=== PATIENT | female | born 1940 | race Hispanic/Latino ===

== ENCOUNTER → 2017-07-30 | Outpatient (CLI) | payer OTHER | END | disposition home or self-care (01) | LOC: RAH 09:22 | PROVIDERS: ATTEND Internal Medicine | DX: Z12.31 Encounter for screening mammogram for malignant neoplasm of breast (principal); N63.10 Unspecified lump in the right breast, unspecified quadrant | CPT/HCPCS: 77067 ==

== ENCOUNTER → 2017-08-17 | Outpatient (CLI) | payer OTHER | END | disposition home or self-care (01) | LOC: RAH 08:10 | PROVIDERS: ATTEND Internal Medicine | DX: N60.12 Diffuse cystic mastopathy of left breast (principal); R92.8 Other abnormal and inconclusive findings on diagnostic imaging of breast | CPT/HCPCS: 76641 ==

== ENCOUNTER 2018-01-23 09:31 | Emergency (ER) | payer OTHER ==
[2018-01-23 09:57] LABS: APPEARANCE,URINE Cloudy (CLEAR); BILIRUBIN,URINE Negative (NEGATIVE); COLOR,URINE Yellow (YELLOW); GLUCOSE, URINE (UA) Negative (NEGATIVE); KETONES,URINE Negative (NEGATIVE); LEUKOCYTE ESTERASE ,URINE Small (NEGATIVE); NITRATE,URINE Negative (NEGATIVE); OCCULT BLOOD,URINE Negative (NEGATIVE); PROTEIN,URINE Trace (NEGATIVE)
[2018-01-23 10:05] LABS: BACTERIA,URINE Few /HPF (None Seen); RBC,URINE 0-1 /HPF (0-1); SQUAMOUS EPITHELIAL CELL,UR Few /HPF (0-2)
[2018-01-23] MEDS ORDERED: ALBUTEROL SULFATE 0.083% 2.5 MG/3 ML INH IH ONE (10:16)
[2018-01-23 10:21] LABS: BASOPHILS % (AUTO) 0.6 % (0.0-5.0); EOSINOPHILS % (AUTO) 1.6 % (0.0-8.0); HEMATOCRIT 41.5 % (36-48); MEAN CORPUSCULAR HGB CONC 34.6 g/dL (32.0-36.0); MEAN CORPUSCULAR VOLUME 86.7 fL (79-99); MONOCYTES % (AUTO) 7.9 % (3.0-13.0); NEUTROPHILS % (AUTO) 65.9 % (40.0-77.0); PLATELET COUNT (AUTO) 434 K/uL (130-400); RED BLOOD CELL COUNT(AUTO) 4.79 MIL/uL (4.00-5.50); RED CELL DISTRIBUTION WIDTH 13.9 % (11.0-15.5); WHITE BLOOD COUNT (AUTO) 14.4 K/uL (4.8-10.8)
[2018-01-23 11:44] LABS: CREATININE 0.5 mg/dL (0.5-1.5); POTASSIUM 3.4 mmol/L (3.5-5.1)
== END 2018-01-23 11:44 | disposition home or self-care (01) ==
LOC: EDH 09:31
DX: J20.9 Acute bronchitis, unspecified (principal); E78.5 Hyperlipidemia, unspecified; I10 Essential (primary) hypertension; Z90.49 Acquired absence of other specified parts of digestive tract; Z72.0 Tobacco use
CPT/HCPCS: 36415; 71046; 80048; 81001; 85025; 87804; 94640

== ENCOUNTER → 2018-05-10 | Outpatient (CLI) | payer OTHER ==
[2018-05-10 09:24] LABS: ALBUMIN 3.6 g/dL (3.5-5.0); BILIRUBIN,DIRECT 0.1 mg/dL (0.0-0.3); BILIRUBIN,TOTAL 0.2 mg/dL (0.2-1.0); TOTAL PROTEIN, SERUM 6.9 g/dL (6.0-8.3)
== END | disposition home or self-care (01) ==
LOC: RAH 08:25
PROVIDERS: ATTEND Internal Medicine
DX: K76.0 Fatty (change of) liver, not elsewhere classified (principal); K86.2 Cyst of pancreas; I70.0 Atherosclerosis of aorta
CPT/HCPCS: 36415; 76700; 80076

== ENCOUNTER 2018-08-27 18:16 | Observation (INO) | payer OTHER ==
[2018-08-27 19:13] LABS: BASOPHILS % (AUTO) 0.1 % (0.0-5.0); EOSINOPHILS % (AUTO) 0.1 % (0.0-8.0); HEMATOCRIT 39.6 % (36-48); LYMPHOCYTES % (AUTO) 11.1 % (21.0-51.0); MEAN CORPUSCULAR HEMOGLOBIN 29.8 pg (27.0-33.0); MEAN CORPUSCULAR HGB CONC 33.9 g/dL (32.0-36.0); MONOCYTES % (AUTO) 5.3 % (3.0-13.0); NEUTROPHILS % (AUTO) 83.4 % (40.0-77.0); NUCLEATED RED BLOOD CELLS 0.1 % (0.0-0.19); PLATELET COUNT (AUTO) 359 K/uL (130-400); RED BLOOD CELL COUNT(AUTO) 4.49 MIL/uL (4.00-5.50); WHITE BLOOD COUNT (AUTO) 12.4 K/uL (4.8-10.8)
[2018-08-27 19:23] LABS: CREATININE 0.6 mg/dL (0.5-1.5); POTASSIUM 3.5 mmol/L (3.5-5.1)
[2018-08-27 19:34] LABS: BILIRUBIN,TOTAL 0.2 mg/dL (0.2-1.0); INR 0.93 (0.85-1.15); PROTHROMBIN TIME 9.8 SEC (9.6-11.6); TOTAL PROTEIN, SERUM 7.4 g/dL (6.0-8.3)
[2018-08-27 19:57] LABS: APPEARANCE,URINE Clear (CLEAR); BILIRUBIN,URINE Negative (NEGATIVE); COLOR,URINE Yellow (YELLOW); GLUCOSE, URINE (UA) Negative (NEGATIVE); KETONES,URINE Negative (NEGATIVE); LEUKOCYTE ESTERASE ,URINE Trace (NEGATIVE); NITRATE,URINE Negative (NEGATIVE); OCCULT BLOOD,URINE Negative (NEGATIVE); PROTEIN,URINE Negative (NEGATIVE); UROBILINOGEN,URINE 0.2 mg/dL (0.2-1.0)
[2018-08-27] MEDS ORDERED: ASPIRIN 325 MG TABLET ONE (20:02)
[2018-08-27 20:22] LABS: BACTERIA,URINE Rare /HPF (None Seen); RBC,URINE None Seen /HPF (0-1); WBC,URINE 0-1 /HPF (0-1)
[2018-08-27] MEDS ORDERED: SODIUM CHLORIDE 0.9% 10 ML VIAL IVP PRN (21:00)
[2018-08-27] MEDS: NITROGLYCERIN 1GM/1 INCH PACKET TD SCH (21:00)
[2018-08-27] MEDS ORDERED: NITROGLYCERIN 1GM/1 INCH PACKET TD ONE (21:14)
[2018-08-27] MEDS ORDERED: POTASSIUM CHLORIDE 10% ELIXIR 20 MEQ/15 ML UDCUP PO PRN (21:30)
[2018-08-27] MEDS ORDERED: GLUCAGON 1MG KIT 1 MG ML IM PRN (21:30)
[2018-08-27] MEDS ORDERED: DIPHENHYDRAMINE HCL 25 MG CAPSULE PO PRN (21:30)
[2018-08-27] MEDS ORDERED: LACTULOSE 20 GM/30 ML UDCUP PO PRN (21:30)
[2018-08-27] MEDS ORDERED: MAG HYDROX/AL HYDROX/SIMETH ES 30 ML SUSP UDCUP PO PRN (21:30)
[2018-08-27] MEDS ORDERED: ACETAMINOPHEN 325 MG TAB PO PRN ×2 (21:30)
[2018-08-27] MEDS ORDERED: GUAIFENESIN-DM 200/20 MG 10 ML PO PRN (21:30)
[2018-08-27] MEDS ORDERED: ONDANSETRON HCL 4 MG/2 ML VIAL IV PRN (21:30)
[2018-08-27] MEDS ORDERED: DEXTROSE 50%-WATER 50 ML DISP.SYRIN IV PRN (21:30)
[2018-08-27] MEDS ORDERED: NITROGLYCERIN 0.4 MG SL TAB SL PRN (21:30)
[2018-08-27] MEDS ORDERED: LIDOCAINE HCL 2% VISCOUS 30 ML, MAG HYDROX/AL HYDROX/SIMETH 30 ML, BELLADONNA-PHENOBARB... PO PRN ×3 (21:30)
[2018-08-27] MEDS ORDERED: LIDOCAINE HCL-MPF 1% 2ML VIAL IVP PRN (21:30)
[2018-08-27] MEDS ORDERED: POTASSIUM CHLORIDE 20MEQ/100ML 100 ML IV PRN (21:30)
[2018-08-27] MEDS ORDERED: DiphenhydrAMINE HCL 50 MG/ML VIAL IV PRN (21:30)
[2018-08-27 23:27] LABS: CREATINE KINASE, TOTAL 91 U/L (21-232); MYOGLOBIN 50 ng/mL (10-92); TROPONIN I < 0.04 ng/mL (0.00-0.06)
[2018-08-27 23:40] VITALS: BP 130/51
[2018-08-27] MEDS: SODIUM CHLORIDE 0.9% 1000ML 1,000 ML IV SCH (23:45)
[2018-08-28 03:45] LABS: CREATINE KINASE, TOTAL 100 U/L (21-232); MYOGLOBIN 39 ng/mL (10-92); TROPONIN I < 0.04 ng/mL (0.00-0.06)
[2018-08-28 04:26] VITALS: BP 127/70
[2018-08-28] MEDS: NITROGLYCERIN 1GM/1 INCH PACKET TD SCH ×3 (05:51→15:15)
[2018-08-28] MEDS ORDERED: LIDOCAINE HCL 2% VISCOUS 30 ML, MAG HYDROX/AL HYDROX/SIMETH 30 ML, DICYCLOMINE HCL 20 MG PO PRN ×3 (06:30)
[2018-08-28] MEDS ORDERED: COMPOUND PO MISCELLANEOUS 1 EACH MISC MISC PRN (06:30)
[2018-08-28] MEDS: INSULIN HUMULIN R 100 UNIT/ML 3ML SQ SCH ×3 (06:43→16:30)
[2018-08-28] MEDS ORDERED: REGADENOSON 0.4 MG/5 ML PF SYG IVP SCH (07:15)
[2018-08-28] MEDS: SODIUM CHLORIDE 0.9% 1000ML 1,000 ML IV SCH ×2 (07:17→17:17)
[2018-08-28 07:30] VITALS: BP 142/69
--- NOTE | 2018-08-28 08:45 | NUR ---
PATIENT TRANSFERED DOWNSTAIRS FOR [facility]. AWAKE AND ALERT, VOICES NO CHEST PAIN OR DISCOMFORT
[2018-08-28] MEDS ORDERED: ASPIRIN 325 MG TABLET PO SCH (09:00)
[2018-08-28] MEDS ORDERED: PANTOPRAZOLE SODIUM 40 MG TABLET.DR PO SCH (09:00)
[2018-08-28] MEDS ORDERED: ENOXAPARIN SODIUM 30 MG/0.3 ML SQ SCH (09:00)
[2018-08-28 11:00] VITALS: BP 130/63
[2018-08-28] MEDS: POTASSIUM CHLORIDE 20 MEQ ERTAB PO PRN ×2 (11:03→13:18)
[2018-08-28 16:00] VITALS: BP 148/63
[2018-08-28] MEDS ORDERED: GABA300S PO (17:05)
[2018-08-28] MEDS ORDERED: TYL3 PO (17:05)
[2018-08-28] MEDS ORDERED: ESOM40CA PO (17:05)
[2018-08-28] MEDS ORDERED: AMLO2.5T4 PO (17:05)
[2018-08-28] MEDS ORDERED: LISI1TAB13 PO (17:05)
[2018-08-28] MEDS ORDERED: ROSU20TA23 PO (17:05)
[2018-08-28] MEDS ORDERED: ASPI-1181 PO (17:05)
[2018-08-28] MEDS ORDERED: ALEN70TA10 PO (17:05)
[2018-08-28] MEDS ORDERED: GLIM1TAB2 PO (17:05)
[2018-08-28] MEDS ORDERED: ALBU1.252 IH (17:05)
[2018-08-28] MEDS ORDERED: FLUT1BLS3 IH (17:05)
--- NOTE | 2018-08-28 18:00 | NUR ---
DISCHARGE INSTRUCTIONS GIVEN. PATIENT TO FOLLOW UP WITH DR. MCCRAY TOMORROW FOR FOLLOW UP APPT. ALL QUESTIONS ANSWERED . IV DISCONTINUED WITH INNER CANNULA INTACT.
[2018-08-29] MEDS ORDERED: ATORVASTATIN CALCIUM 40 MG TABLET PO SCH (09:00)
== END 2018-08-28 18:40 | disposition home or self-care (01) ==
LOC: EDH 18:16 → EDHIP 20:00 → 3DH 21:20
PROVIDERS: ADMIT Internal Medicine; ATTEND Internal Medicine
DX: R07.89 Other chest pain (principal); E11.51 Type 2 diabetes mellitus with diabetic peripheral angiopathy without gangrene; E11.36 Type 2 diabetes mellitus with diabetic cataract; E55.9 Vitamin D deficiency, unspecified; E78.2 Mixed hyperlipidemia; I10 Essential (primary) hypertension; I70.212 Atherosclerosis of native arteries of extremities with intermittent claudication, left leg; J44.9 Chronic obstructive pulmonary disease, unspecified; K21.9 Gastro-esophageal reflux disease without esophagitis; M19.90 Unspecified osteoarthritis, unspecified site; M43.16 Spondylolisthesis, lumbar region; M47.816 Spondylosis without myelopathy or radiculopathy, lumbar region; Z82.49 Family history of ischemic heart disease and other diseases of the circulatory system; Z83.3 Family history of diabetes mellitus; Z90.49 Acquired absence of other specified parts of digestive tract; Z90.710 Acquired absence of both cervix and uterus; F17.200 Nicotine dependence, unspecified, uncomplicated
CPT/HCPCS: 36415 ×2; 71045; 78452; 80053; 81001; 82550 ×3; 82948 ×4; 83874 ×3; 84484 ×3; 85025; 85610; 85730; 93005; 96372; 99284; A9500 ×2; G0378 ×23; J1650; J2785; J7030

== ENCOUNTER → 2018-12-13 | Outpatient (CLI) | payer OTHER ==
[~2018-12-13] MED LIST: ALBU1.252 IH; ALEN70TA10 PO; AMLO2.5T4 PO; ASPI-1181 PO; ESOM40CA PO; FLUT1BLS3 IH; GABA300S PO; GLIM1TAB3 PO; LISI1TAB29 PO; ROSU20TA23 PO; TYL3 PO
== END | disposition home or self-care (01) ==
LOC: RAH 07:47
PROVIDERS: ATTEND Internal Medicine
DX: K86.2 Cyst of pancreas (principal); Z90.49 Acquired absence of other specified parts of digestive tract
CPT/HCPCS: 76700

== ENCOUNTER → 2020-10-10 | Outpatient (CLI) | payer OTHER ==
[~2020-10-10] MED LIST changes: -ALEN70TA10 PO; +ALEN70TA80 PO; -ASPI-1181 PO; +ASPI-1443 PO; +GLIM1TAB18 PO; -GLIM1TAB3 PO
== END | disposition home or self-care (01) ==
LOC: OIH 07:37
PROVIDERS: ATTEND Internal Medicine
DX: M25.572 Pain in left ankle and joints of left foot (principal)
CPT/HCPCS: 73610

== ENCOUNTER 2022-07-03 09:31 | Observation (INO) | payer OTHER ==
[~2022-07-03] VITALS: Ht 157.5 cm; Wt 75.3 kg
[~2022-07-03 09:31] MED LIST changes: -GABA300S PO; +GABA300S3 PO; -LISI1TAB29 PO; +LISI1TAB53 PO
[2022-07-03] MEDS ORDERED: ZOSYN 3.375GM +NS 50ML IVPB ONE (10:30)
[2022-07-03 10:55] LABS: ALBUMIN 3.7 g/dL (3.5-5.0); CREATININE 0.5 mg/dL (0.5-1.5); POTASSIUM 3.7 mmol/L (3.5-5.1); TOTAL PROTEIN, SERUM 7.1 g/dL (6.0-8.3)
[2022-07-03] MEDS ORDERED: ONDANSETRON 4MG INJ IVP PRN (11:00)
[2022-07-03] MEDS ORDERED: 0.9%NACL 1000ML 1,000 ML IV SCH (11:00)
[2022-07-03] MEDS ORDERED: ONDANSETRON 4MG INJ IVP ONE (11:00)
[2022-07-03] MEDS ORDERED: MORPHINE 2 MG SYG IVP ONE (11:00)
[2022-07-03] MEDS: ZOSYN 3.375GM +NS 50ML IVPB SCH ×2 (11:00→23:05)
[2022-07-03] MEDS ORDERED: MORPHINE 2 MG SYG IVP PRN (11:00)
[2022-07-03] MEDS ORDERED: ACETAMINOPHEN 325 MG TAB PO PRN (11:00)
[2022-07-03 11:10] LABS: BASOPHILS % (AUTO) 0.6 % (0.0-5.0); EOSINOPHILS % (AUTO) 2.9 % (0.0-8.0); LYMPHOCYTES % (AUTO) 25.6 % (21.0-51.0); MEAN CORPUSCULAR HEMOGLOBIN 29.9 pg (27.0-33.0); MEAN CORPUSCULAR HGB CONC 33.8 g/dL (32.0-36.0); MEAN CORPUSCULAR VOLUME 88.4 fL (79-99); MONOCYTES % (AUTO) 9.5 % (3.0-13.0); NEUTROPHILS % (AUTO) 60.8 % (40.0-77.0); PLATELET COUNT (AUTO) 370 K/uL (130-400); RED BLOOD CELL COUNT(AUTO) 4.41 MIL/uL (4.00-5.50); RED CELL DISTRIBUTION WIDTH 13.2 % (11.0-15.5); WHITE BLOOD COUNT (AUTO) 8.6 K/uL (4.8-10.8)
[2022-07-03] MEDS ORDERED: INSULIN HUMULIN R 100 UNIT/ML 3ML SQ SCH (11:30)
[2022-07-03] MEDS ORDERED: BUSP10TA3 PO (12:14)
[2022-07-03] MEDS ORDERED: ALBU2.5V2 IH (12:14)
[2022-07-03] MEDS ORDERED: GLIM2TAB30 PO (12:14)
[2022-07-03] MEDS ORDERED: FAMO20TA8 PO (12:14)
[2022-07-03] MEDS ORDERED: HYDR-3420 PO (12:14)
[2022-07-03] MEDS ORDERED: HYDR25TA PO (12:14)
[2022-07-03] MEDS ORDERED: LEVO-70 PO (12:14)
[2022-07-03] MEDS ORDERED: ROSU20TA23 PO (12:14)
[2022-07-03] MEDS ORDERED: BENZ-226 PO (12:14)
[2022-07-03] MEDS ORDERED: GABA300C PO (12:14)
[2022-07-03] MEDS ORDERED: NITR0.4T50 SL (12:14)
[2022-07-03] MEDS ORDERED: FLUT1BLS3 IH (12:14)
[2022-07-03] MEDS ORDERED: CLIN-141 PO (12:14)
[2022-07-03] MEDS ORDERED: ALBU90AE IH (12:15)
[2022-07-03] MEDS ORDERED: ALBUTEROL 0.083% 2.5 MG/3 ML INH IH PRN (12:30)
[2022-07-03] MEDS ORDERED: ROSUVASTATIN CALCIUM 20 MG PO SCH (12:30)
[2022-07-03] MEDS ORDERED: POTASSIUM CHLORIDE 10% ELIXIR 20 MEQ/15 ML UDCUP PO PRN (12:30)
[2022-07-03] MEDS ORDERED: GUAIFENESIN-DM 200/20 MG 10 ML PO PRN (12:30)
[2022-07-03] MEDS ORDERED: POTASSIUM CHLORIDE 20MEQ/100ML 100 ML IV PRN (12:30)
[2022-07-03] MEDS ORDERED: MAGNESIUM 2GM PREMIX 50ML 50 ML IV PRN (12:30)
[2022-07-03] MEDS ORDERED: NITROGLYCERIN 0.4 MG SL TAB SL PRN (12:30)
[2022-07-03] MEDS ORDERED: DEXTROSE 50%-WATER 50 ML DISP.SYRIN IV PRN (12:30)
[2022-07-03] MEDS ORDERED: KCL 20 MEQ ERTAB PO PRN (12:30)
[2022-07-03] MEDS ORDERED: GLUCAGON 1MG KIT 1 MG ML IM PRN (12:30)
[2022-07-03] MEDS ORDERED: LACTULOSE 20 GM/30 ML UDCUP PO PRN (12:30)
[2022-07-03] MEDS ORDERED: MAG/ALUM/SIMETH 30 ML UDCUP PO PRN (12:30)
[2022-07-03] MEDS ORDERED: BUSPIRONE HCL 5 MG TABLET PO PRN (13:00)
[2022-07-03 14:10] VITALS: BP 144/73
[2022-07-03 16:00] VITALS: BP 146/65
[2022-07-03] MEDS: INSULIN HUMULIN R 100 UNIT/ML 3ML SQ SCH ×2 (16:20→20:45)
[2022-07-03] MEDS: GLIMEPIRIDE 2 MG TABLET PO SCH (16:22)
[2022-07-03] MEDS: HONEY 1 APPL/ML TUBE TP SCH (18:26)
[2022-07-03 19:50] VITALS: BP 134/79
[2022-07-03] MEDS: HYDRALAZINE HCL 10 MG TABLET PO SCH (20:46)
[2022-07-03] MEDS: GABAPENTIN 300 MG CAPSULE PO SCH (20:47)
[2022-07-03] MEDS ORDERED: AMLODIPINE 2.5 MG TAB PO SCH (21:00)
[2022-07-03 23:51] VITALS: BP 121/78
[2022-07-04 03:22] VITALS: BP 144/76
[2022-07-04] MEDS: ACETAMINOPHEN WITH CODEINE 1 TAB TAB PO PRN ×2 (05:52→10:55)
[2022-07-04 06:13] LABS: HEMATOCRIT 37.6 % (36-48); MEAN CORPUSCULAR HEMOGLOBIN 29.6 pg (27.0-33.0); MEAN CORPUSCULAR VOLUME 89.7 fL (79-99); RED BLOOD CELL COUNT(AUTO) 4.19 MIL/uL (4.00-5.50); RED CELL DISTRIBUTION WIDTH 13.5 % (11.0-15.5); WHITE BLOOD COUNT (AUTO) 8.3 K/uL (4.8-10.8)
[2022-07-04 06:22] LABS: CREATININE 0.5 mg/dL (0.5-1.5); POTASSIUM 3.9 mmol/L (3.5-5.1)
[2022-07-04] MEDS: INSULIN HUMULIN R 100 UNIT/ML 3ML SQ SCH ×2 (06:46→11:30)
[2022-07-04 08:00] VITALS: BP 141/72
[2022-07-04] MEDS: HYDRALAZINE HCL 10 MG TABLET PO SCH (08:34)
[2022-07-04] MEDS: GLIMEPIRIDE 2 MG TABLET PO SCH (08:35)
[2022-07-04] MEDS: GABAPENTIN 300 MG CAPSULE PO SCH (08:35)
[2022-07-04] MEDS: HONEY 1 APPL/ML TUBE TP SCH (08:40)
[2022-07-04] MEDS ORDERED: ASPIRIN 81 MG EC TAB PO SCH (09:00)
[2022-07-04] MEDS ORDERED: ENOXAPARIN SODIUM 30 MG/0.3 ML SQ SCH (09:00)
[2022-07-04] MEDS ORDERED: HYDROCHLOROTHIAZIDE 25 MG TABLET PO SCH (09:00)
[2022-07-04] MEDS ORDERED: FAMOTIDINE 20MG TAB PO SCH (09:00)
[2022-07-04] MEDS: ZOSYN 3.375GM +NS 50ML IVPB SCH (10:55)
[2022-07-04] MEDS ORDERED: CLIN-141 PO (11:30)
[2022-07-04] MEDS ORDERED: LEVO-70 PO (11:30)
[2022-07-04 11:56] VITALS: BP 136/69
== END 2022-07-04 15:00 | disposition home or self-care (01) ==
LOC: EDH 09:31 → INTOOBSV 11:00 → EDHIP 11:00 → 3DH 14:10
PROVIDERS: ADMIT Internal Medicine; ATTEND Internal Medicine
DX: L97.819 Non-pressure chronic ulcer of other part of right lower leg with unspecified severity (principal); S80.211A Abrasion, right knee, initial encounter; J44.9 Chronic obstructive pulmonary disease, unspecified; F17.200 Nicotine dependence, unspecified, uncomplicated; D84.81 Immunodeficiency due to conditions classified elsewhere; E55.9 Vitamin D deficiency, unspecified; E78.2 Mixed hyperlipidemia; I12.9 Hypertensive chronic kidney disease with stage 1 through stage 4 chronic kidney disease, or unspecified chronic kidney disease; E11.22 Type 2 diabetes mellitus with diabetic chronic kidney disease; N18.9 Chronic kidney disease, unspecified; E11.42 Type 2 diabetes mellitus with diabetic polyneuropathy; E11.51 Type 2 diabetes mellitus with diabetic peripheral angiopathy without gangrene; E11.65 Type 2 diabetes mellitus with hyperglycemia; I70.0 Atherosclerosis of aorta; F03.90 Unspecified dementia, unspecified severity, without behavioral disturbance, psychotic disturbance, mood disturbance, and anxiety; K21.9 Gastro-esophageal reflux disease without esophagitis; I70.212 Atherosclerosis of native arteries of extremities with intermittent claudication, left leg; I77.810 Thoracic aortic ectasia; M17.10 Unilateral primary osteoarthritis, unspecified knee; W18.30XA Fall on same level, unspecified, initial encounter; Y93.89 Activity, other specified; Y92.89 Other specified places as the place of occurrence of the external cause; Z79.84 Long term (current) use of oral hypoglycemic drugs; Z90.49 Acquired absence of other specified parts of digestive tract; Z90.710 Acquired absence of both cervix and uterus; Z79.899 Other long term (current) drug therapy
CPT/HCPCS: 96365; 96366 ×2; 96375; 99285; 80053; 85025; 87040 ×2; 87070; 87076; 82948 ×4; 83605; 36415 ×2; 73562; 93925; 73721; 94640; 94664; 96372; 80048; 85027; J2405; J2543 ×3; G0378 ×3; J1650; J2270

== ENCOUNTER → 2023-12-01 | Outpatient (CLI) | payer OTHER ==
[~2023-12-01] MED LIST changes: -ALBU1.252 IH; +ALBU2.5V2 IH; +ALBU90AE IH; -ALEN70TA80 PO; +BUSP10TA3 PO; +CLIN-141 PO; -ESOM40CA PO; +FAMO20TA8 PO; +GABA300C PO; -GABA300S3 PO; -GLIM1TAB18 PO; +GLIM2TAB30 PO; +HYDR-3420 PO; +HYDR25TA PO; +LEVO-70 PO; -LISI1TAB53 PO; +NITR0.4T50 SL; -TYL3 PO
== END | disposition home or self-care (01) ==
LOC: RAH 10:30
PROVIDERS: ATTEND Internal Medicine
DX: J44.9 Chronic obstructive pulmonary disease, unspecified (principal)
CPT/HCPCS: 71046

== ENCOUNTER → 2023-12-08 | Outpatient (CLI) | payer OTHER | END | disposition home or self-care (01) | LOC: RAH 13:11 | PROVIDERS: ATTEND Internal Medicine | DX: R22.1 Localized swelling, mass and lump, neck (principal) | CPT/HCPCS: 76536 ==

== ENCOUNTER → 2024-01-26 | Outpatient (CLI) | payer OTHER ==
--- NOTE | 2024-01-26 10:28 | NUR ---
U/S GD LT NECK MASS BX TOLERATED PROCEDURE. PERFORMED BY DR RAY. PUNCTURE SITE TO LT NECK. X4 SPECIMEN OF LT NECK MASS TAKEN AND SENT TO LAB. END OF PROCEDURE AT 1008. DRESSING APPLIED. NO BLEEDING NOTED. DRY AND INTACT. DISCHARGE INSTRUCTIONS GIVEN. VERBALIZED UNDERSTANDING. DISCHARGE VIA AMBULATORY. DENIES PAIN. A&O.
[2024-01-26 10:39] LABS: INR 1.01 (0.85-1.15); PROTHROMBIN TIME 10.9 SEC (9.6-11.6)
[2024-01-26 10:40] LABS: PARTIAL THROMBOPLASTIN TIME 26.5 SEC (26.3-35.5)
--- NOTE | 2024-01-26 12:28 | HMCIMG ---
US GUIDANCE [facility]DL [facility] REASON: LT NECK MASS COMPARISON: None TECHNIQUE: Procedure was discussed with the patient including risks and benefits. Left neck mass was identified with preprocedure ultrasound and overlying skin prepped and draped in a sterile fashion. 1% Xylocaine infiltration was performed. Ultrasound-guided biopsy was then performed with placement of a 16-gauge stylet at the margin of the mass. A total of 4 18-gauge by 1 cm core samples were then obtained under direct ultrasound guidance. Stylette and needle were then removed. Patient experienced no evidence of complication during the procedure. IMPRESSION: 1. Ultrasound-guided core biopsy of left neck mass as described.
== END | disposition home or self-care (01) ==
LOC: RAH 09:10
PROVIDERS: ATTEND Otolaryngology Plastic Surgery within the Head & Neck
DX: R22.1 Localized swelling, mass and lump, neck (principal); D11.9 Benign neoplasm of major salivary gland, unspecified; J38.3 Other diseases of vocal cords; E11.9 Type 2 diabetes mellitus without complications; Z72.0 Tobacco use; Z90.49 Acquired absence of other specified parts of digestive tract; Z79.84 Long term (current) use of oral hypoglycemic drugs; Z79.82 Long term (current) use of aspirin; Z98.49 Cataract extraction status, unspecified eye; Z79.01 Long term (current) use of anticoagulants; Z79.899 Other long term (current) drug therapy; Z98.890 Other specified postprocedural states
CPT/HCPCS: 20206; 36415; 38505; 42400; 76942; 85610; 85730; 88305